=== PATIENT | male | born 1970 | race Caucasian/White ===

== ENCOUNTER 2016-03-10 08:36 | Outpatient (RCR) | payer OTHER ==
[~2016-03-10 08:36] MED LIST: BACTRIM DS 8001 TAB PO; CEPHALEXIN500 M1 PO; HYDROCODONE/APAP; [UNRECOGNIZED DRUG - OTHER] PO
== END 2016-06-08 ==
LOC: WSOH
DX: L76.11 Accidental puncture and laceration of skin and subcutaneous tissue during a dermatologic procedure (principal); X58.XXXA Exposure to other specified factors, initial encounter; Y99.0 Civilian activity done for income or pay

== ENCOUNTER 2018-01-19 12:53 | Outpatient (RCR) | payer OTHER | END 2018-04-11 | disposition home or self-care (01) | LOC: WSOH | DX: S01.81XA Laceration without foreign body of other part of head, initial encounter (principal); W01.198A Fall on same level from slipping, tripping and stumbling with subsequent striking against other object, initial encounter; Y92.59 Other trade areas as the place of occurrence of the external cause; Y99.0 Civilian activity done for income or pay; Z87.891 Personal history of nicotine dependence; Z79.51 Long term (current) use of inhaled steroids; Z79.899 Other long term (current) drug therapy ==

== ENCOUNTER → 2019-11-17 | Outpatient (CLI) | payer OTHER ==
[~2019-11-17] VITALS: Ht 180.3 cm; Wt 102.6 kg
[2019-11-17] VITALS (16 sets, daily range): BP systolic 112–139; BP diastolic 56–85; PULSE 56–89
== END ==
LOC: COL.RAD
DX: R91.8 Other nonspecific abnormal finding of lung field (principal)

== ENCOUNTER 2021-04-16 16:05 | Emergency (ER) | payer OTHER ==
[~2021-04-16] VITALS: Ht 177.8 cm; Wt 88.6 kg
[2021-04-16 16:19] VITALS: TEMP 98.6
[2021-04-16 16:48] LABS: BASO # 0.1 K/mm3 (0.0-0.2); BASO % 0.9 % (0.0-2.0); EOS % 0.4 % (0.0-4.0); GRAN # 5.9 K/mm3 (1.4-6.5); GRAN % 83.4 % (42.2-75.2); HEMATOCRIT 45.6 % (42.0-52.0); LYMPH # 0.4 K/mm3 (1.2-3.4); LYMPH % 5.1 % (20.0-51.0); MEAN CELL VOLUME 86 fl (80.0-100.0); MEAN CORPUSCULAR HEMOGLOBIN 30 pg (27-31); MEAN CORPUSCULAR HGB CONC 35 g/dl (33.0-37.0); MEAN PLATELET VOLUME 9.6 fl (7.4-10.4); MONO # 0.7 K/mm3 (0.1-0.6); MONO % 9.9 % (1.7-9.3); PLATELET COUNT 249 K/mm3 (130-400); RED BLOOD COUNT 5.33 M/mm3 (4.20-5.60)
[2021-04-16 17:08] LABS: ALBUMIN 4.3 gm/dL (3.5-5.0); BILIRUBIN,TOTAL 1.5 mg/dL (0.2-1.2); C-REACTIVE PROTEIN 0.52 mg/dL (0.00-0.50); CALCIUM 9.4 mg/dL (8.4-10.2); CREATININE, serum 1.02 mg/dL (0.72-1.25); POTASSIUM 3.6 mmol/L (3.5-4.5); TOTAL PROTEIN 7.3 gm/dL (6.2-8.1)
[2021-04-16 19:19] VITALS: BP 116/65; PULSE 85
== END 2021-04-16 19:27 | disposition home or self-care (01) ==
LOC: COL.ER 16:05
PROVIDERS: Physician Assistant
DX: U07.1 COVID-19 (principal); D86.0 Sarcoidosis of lung; J84.9 Interstitial pulmonary disease, unspecified; Z87.891 Personal history of nicotine dependence; Z88.0 Allergy status to penicillin
CPT/HCPCS: J7030; Q0247